=== PATIENT | female | born 1990 | race Caucasian/White ===

== ENCOUNTER 2023-09-10 16:48 | Emergency (ER) | payer OTHER ==
[~2023-09-10] VITALS: Ht 162.6 cm; Wt 72.6 kg
[2023-09-10] MEDS ORDERED: NS 1,000 ML IV SCH (20:30)
[2023-09-10 21:15] LABS: Influenza A, PCR NEGATIVE (NEGATIVE); Influenza B, PCR NEGATIVE (NEGATIVE); Resp Syncytial Virus, PCR NEGATIVE (NEGATIVE); SARS-Cov-2 (COVID-19) PCR, MMC NEGATIVE (NEGATIVE)
== END 2023-09-10 21:38 | disposition home or self-care (01) ==
LOC: ER 16:48
PROVIDERS: Physician Assistant
DX: T67.5XXA Heat exhaustion, unspecified, initial encounter (principal); E86.0 Dehydration
CPT/HCPCS: 0241U; 96360; 99284-25; J7030